=== PATIENT | male | born 1945 | race Caucasian/White ===

== ENCOUNTER → 2018-04-08 | Outpatient (RCR) | payer MEDICARE, OTHER | END | disposition home or self-care (01) | LOC: ONC 01-06 14:41 | PROVIDERS: ATTEND Radiology Radiation Oncology | DX: Z51.0 Encounter for antineoplastic radiation therapy (principal); C61 Malignant neoplasm of prostate | CPT/HCPCS: 77300; 77301; 77334; 77336; 77338; 77385; 99205 ==

== ENCOUNTER 2018-07-01 14:18 | Outpatient (RCR) | payer MEDICARE, OTHER | END 2018-07-08 | disposition home or self-care (01) | LOC: ONC 14:18 | PROVIDERS: ATTEND Radiology Radiation Oncology | DX: Z51.0 Encounter for antineoplastic radiation therapy (principal); C61 Malignant neoplasm of prostate | CPT/HCPCS: 36415; 77336; 77385; 84153; 99213 ==

== ENCOUNTER 2018-12-30 09:47 | Outpatient (RCR) | payer MEDICARE, OTHER | END 2019-03-30 | disposition home or self-care (01) | LOC: ONC 09:47 | PROVIDERS: ATTEND Radiology Radiation Oncology | DX: C61 Malignant neoplasm of prostate (principal) | CPT/HCPCS: 36415; 84153 ==